=== PATIENT | female | born 1970 | race Caucasian/White ===

== ENCOUNTER 2019-05-11 19:57 | Emergency (ER) | payer MEDICAID, OTHER ==
[~2019-05-11] VITALS: Ht 160 cm; Wt 54.4 kg
[2019-05-11 21:03] VITALS: BP 153/92
== END 2019-05-11 21:40 | disposition home or self-care (01) ==
LOC: ER 20:03
DX: S39.012A Strain of muscle, fascia and tendon of lower back, initial encounter (principal); Z88.6 Allergy status to analgesic agent; X58.XXXA Exposure to other specified factors, initial encounter; Y93.89 Activity, other specified; Y92.89 Other specified places as the place of occurrence of the external cause; Y99.8 Other external cause status

== ENCOUNTER 2020-02-15 19:08 | Emergency (ER) | payer MEDICAID ==
[~2020-02-15] VITALS: Ht 160 cm; Wt 54.4 kg
[2020-02-15 19:18] VITALS: BP 141/80
--- NOTE | 2020-02-15 19:26 | NUR ---
PT AAOX4. AMBULATORY BIBSELF C/O BIG TOE HURTING S/P HITTING IT ON A 2X4. PT WANTS TO RULE OUT A FRACTURE. PALCED IN BED 1, ON MONITOR AND PULSE OX. AT BEDSIDE FOR EVAL.
--- NOTE | 2020-02-15 19:49 | NUR ---
XRAY AT BEDSIDE
== END 2020-02-15 20:33 | disposition home or self-care (01) ==
LOC: ER 19:08
DX: M79.674 Pain in right toe(s) (principal); Z88.6 Allergy status to analgesic agent; W22.8XXA Striking against or struck by other objects, initial encounter; Y93.01 Activity, walking, marching and hiking; Y92.098 Other place in other non-institutional residence as the place of occurrence of the external cause; Y99.8 Other external cause status
CPT/HCPCS: 73660-TC

== ENCOUNTER 2021-03-21 11:28 | Emergency (ER) | payer MEDICAID ==
[~2021-03-21] VITALS: Ht 160 cm; Wt 64.9 kg
[2021-03-21 11:33] VITALS: BP 141/93
--- NOTE | 2021-03-21 11:36 | NUR ---
Patient came in to the er c/o congestion/runny nose, cough, sob 98% on room air x 4 days. On room air, breathing evenly and unlabored. Connected to the monitor and pulse ox. kept comfortable, will continue to monitor accordingly.
[2021-03-21] MEDS ORDERED: BENZ-13 PO (11:40)
[2021-03-21] MEDS ORDERED: OXYM15MI4 NS (11:40)
--- NOTE | 2021-03-21 11:47 | NUR ---
Patient discharged to home in stable condition. Written and verbal after care instructions given. Patient verbalizes understanding of instruction.
== END 2021-03-21 11:48 | disposition home or self-care (01) ==
LOC: ER 11:38
DX: J02.8 Acute pharyngitis due to other specified organisms (principal); Z88.6 Allergy status to analgesic agent

== ENCOUNTER 2022-12-14 18:58 | Emergency (ER) | payer BC, OTHER ==
[~2022-12-14] VITALS: Ht 160 cm; Wt 54.4 kg
[~2022-12-14 18:58] MED LIST: BENZ-13 PO; OXYM15MI4 NS
[2022-12-14] MEDS ORDERED: NITROGLYCERIN 0.4 MG/TAB BOTTLE ONE (20:07)
[2022-12-14] MEDS: NITROGLYCERIN 0.4 MG/TAB BOTTLE SL ONE (20:09)
--- NOTE | 2022-12-14 20:18 | NUR ---
BLOODWORK COLLECTED. 18GA RA AC. JAZMÍN AT BEDSIDE.
--- NOTE | 2022-12-14 20:19 | NUR ---
NITRO SL GIVEN X1 AT 2008. PAIN RELIEVED PER PATIENT.
--- NOTE | 2022-12-14 20:20 | NUR ---
XR AT BEDSIDE.
[2022-12-14 20:48] LABS: CARBON DIOXIDE 26 mmol/L (21-32); CHLORIDE 106 mmol/L (98-107); CREATININE 0.9 mg/dL (0.6-1.3); GLUCOSE 99 mg/dL (74-106); POTASSIUM 3.6 mmol/L (3.5-5.1); SODIUM SERUM 141 mmol/L (136-145); UREA NITROGEN, BLOOD 15 mg/dL (7-18)
[2022-12-14 20:51] LABS: BASOPHILS # (AUTO) 0.1 K/uL (0.0-0.2); BASOPHILS % (AUTO) 0.4 % (0.0-2.0); EOSINOPHILS % (AUTO) 1.8 % (0.0-6.0); HEMATOCRIT 39 % (33-45); HEMOGLOBIN 12.7 g/dL (11.5-14.8); LYMPHOCYTES # (AUTO) 4.5 K/uL (0.8-4.8); LYMPHOCYTES % (AUTO) 33.6 % (20.0-44.0); MEAN CORPUSCULAR HGB CONC 32 g/dl (31.0-36.0); MEAN CORPUSCULAR VOLUME 86 fL (82-100); MONOCYTES # (AUTO) 0.8 K/uL (0.1-1.30); MONOCYTES % (AUTO) 5.9 % (2.0-12.0); NEUTROPHILS # (AUTO) 7.8 K/uL (1.8-8.9); NEUTROPHILS % (AUTO) 58.3 % (43.0-81.0); PLATELET COUNT (AUTO) 380 K/uL (150-450); RED BLOOD CELL COUNT(AUTO) 4.56 MIL/uL (4.0-5.2); WHITE BLOOD COUNT (AUTO) 13.4 K/uL (4.3-11.0)
--- NOTE | 2022-12-14 23:04 | NUR ---
2nd Troponin pending. IV removed per patient's request; MD aware. Catheter intact and site benign. Pressure and 4x4 applied to site. No bleeding noted.
--- NOTE | 2022-12-15 00:36 | NUR ---
Patient discharged to home in stable condition. Written and verbal after care instructions given. Patient verbalizes understanding of instruction.
[2022-12-15 01:28] VITALS: BP 121/89
== END 2022-12-15 00:30 | disposition home or self-care (01) ==
LOC: ER 19:03
DX: R07.89 Other chest pain (principal); Z79.899 Other long term (current) drug therapy; Z88.1 Allergy status to other antibiotic agents
CPT/HCPCS: 36415; 71045-TC; 80048-TC; 83880; 84484-TC; 85025-TC